=== PATIENT | female | born 1990 | race Caucasian/White ===

== ENCOUNTER 2019-02-01 13:55 | Inpatient (IN) ==
[2019-02-01] MEDS ORDERED: OXYTOCIN 30 UNITS/500 ML BAG IV PRN ×3 (14:09→21:24)
[2019-02-01] MEDS: LACTATED RINGER'S 1,000 ML IV PRN ×3 (14:15→16:27)
[2019-02-01 14:33] LABS: Hematocrit (blood only) 37.6 % (37-47); Hemoglobin 13.1 g/dL (12.0-16.0); Mean Corpuscular Hemoglobin 31.1 pg (25-34); Mean Corpuscular Volume 89.3 fL (80-100); Mean Platelet Volume 12.2 fL (7.4-10.4); Platelet Count 136 K/uL (130-400); RDW Coefficient of Variation 13.7 % (11.5-14.5); RDW Standard Deviation 44.6 fL (36.4-46.3); Red Blood Count 4.21 M/uL (4.2-5.4); White Blood Count 12.52 K/uL (4.8-10.8)
[2019-02-01 15:09] LABS: Mean Corpuscular Hgb Conc 34.8 g/dL (32-36)
[2019-02-01] MEDS ORDERED: BUPIVACAINE 0.25% 30 ML VIAL ONE (15:55)
[2019-02-01] MEDS ORDERED: ePHEDrine sulfate 50 MG/ML AMP ONE (15:55)
[2019-02-01] MEDS ORDERED: fentaNYL 2MCG/ML ROPIV 1.25MG/ML 100 ML BAG EPI ONE (15:56)
--- NOTE | 2019-02-01 16:07 | Anesthesiology Consultation ---
Date of Service February 01, 2019 Assessment & Plan (1) Encounter for pre-operative examination: Chart Review Chart Review: Patient NOT seen in Pre Admission Testing and Acceptable Risk for Labor Epidural Consults Requested none ASA ASA2 Proposed Anesthesia Anesthesia Type: Labor Epidural Risk / Benefits Reviewed With: PT / POA / Parent / Guardian, Accepts Plan and Informed Consent Obtained History Height/Weight Height: 5 ft 2 in Weight: 75.098 kg Allergies Allergy/AdvReac Type Severity Reaction Status Date / Time No Known Allergies Allergy Verified 01/31/19 13:41 Medications Home Medications Medication Instructions Recorded Confirmed Last Taken ondansetron HCl 4 mg tablet 1 PO .TAKE 1 TABLET Every #20 tab 10/31/18 01/31/19 Unknown 1 tab PO DAILY 10/31/18 01/31/19 Unknown vitamin,calcium,tszxqfau-bfxx-yfdif acid tablet calcium carbonate-vitamin D3 PO 11/07/18 01/31/19 Unknown Active Medications Generic Name Dose Route Start Last Admin Trade Name Freq PRN Reason Stop Dose Admin Lactated Ringer's 1,000 mls @ 125 mls/hr 02/01/19 14:09 02/01/19 16:27 Lr IV 02/03/19 14:08 999 mls/hr .Q8H PRN Administration L&D Protocol Protocol Oxytocin 30 units in 500 mls @ 1 mls/hr 02/01/19 14:09 02/01/19 15:09 Pitocin IV 02/03/19 14:08 0.06 units/hr .Q24H PRN 1 mls/hr Labor Induction/Augmentation Administration Protocol 0.06 UNITS/HR NPO Date Last Intake of Fluids: 02/01/19 Time Last Intake of Fluids: 16:02 Date Last Intake of Solids: 01/31/19 Time Last Intake of Solids: 06:00 Past Medical History Medical History History of chicken pox History of hip fracture Exercise / Class Metabolic Activity II 4-5 Yardwork/Stairs/Walk up hill Negative for chest pain or shortness of breath. Past Family History Family History Other No pertinent family history Past Anesthesia History No Family Hx of Anesthesia Complications Pt with a personal history of PDPH with last epidural - no blood patch History of PONV No Hx of Motion Sickness Social History Smoking Status: Never smoker Do You Dip or Chew Tobacco: No Hx Alcohol Use: No Hx Substance Use: No Review of Systems Patient denies history of abnormal bleeding or bleeding disorder. Patient denies active use of anticoagulants other than low dose aspirin. Patient denies numbness, tingling or weakness in lower extremities. Physical Exam Vital Signs Last Vital Signs Temp 36.8 C 02/01/19 15:21 Pulse 85 02/01/19 16:45 Resp 20 02/01/19 15:21 BP 103/56 L 02/01/19 16:43 Pulse Ox 99 02/01/19 16:45 Constitutional not obese (Gravid uterus) ENMT Mouth: no TMJ abnormality and oral opening not small Thyromental Distance: > or= 3.5 Finger Breadths Mallampati Class: III Neck normal visual inspection; neck extension not limited Respiratory normal respiratory effort Auscultation: lungs clear to auscultation bilaterally Cardiovascular Rate/Rhythm: regular rate and regular rhythm Heart Sounds: no murmur Neurologic moves all extremities Motor/Sensory: no sensory deficit Psychiatric Orientation: alert and oriented x 3 Testing Laboratory Results 02/01/19 14:17
[2019-02-01] MEDS: fentaNYL citrate 100 MCG/2 ML VIAL ONE ×2 (16:29→16:32)
[2019-02-01] MEDS ORDERED: ONDANSETRON INJ 2 MG/ML 2 ML VIAL IV PRN (16:43)
[2019-02-01] MEDS ORDERED: ePHEDrine sulfate 50 MG/ML AMP IV PRN (16:43)
[2019-02-01] MEDS ORDERED: NALOXONE HCL 1 MG in SODIUM CHLORIDE 0.9% 1000ML 1,000 ML IV PRN (16:43)
[2019-02-01] MEDS ORDERED: fentaNYL 2MCG/ML ROPIV 1.25MG/ML 100 ML BAG EPI PRN (16:43)
[2019-02-01] MEDS ORDERED: DiphenhydrAMINE HCL 50 MG/ML VIAL IV PRN (16:43)
[2019-02-01] MEDS ORDERED: NALOXONE HCL 0.4 MG/1 ML VIAL/CARP IV PRN (16:43)
[2019-02-01] MEDS ORDERED: NALBUPHINE HCL INJ 10 MG/ML AMP IV PRN (16:43)
--- NOTE | 2019-02-01 20:31 | Delivery Summary ---
Vaginal Delivery Summary Date of Service February 01, 2019 Vaginal Delivery Summary DIAGNOSES: 1. Leon intrauterine at 40w4d gestation. 2. Planned IOL; however patient admitted in early labor, then augmented. 3. Group B Streptococcus Neg. PROCEDURE: Spontaneous vaginal delivery without laceration. SURGEON: Marianne Cortez MD. PIPE INSPECTOR: None. ESTIMATED BLOOD LOSS: 500 mL. COMPLICATIONS: None. PLACENTA: Spontaneous and intact with a 3-vessel cord. DISPOSITION: Stable to labor and delivery. DESCRIPTION: The patient pushed well and brought the head to in OA position. The infant's head was allowed to deliver with contraction force and no further active pushing, with the perineum protected during this time. The shoulders delivered easily with a maternal pushing effort. There was no nuchal cord. The shoulders and body delivered without any difficulty, and the infant was placed on the maternal abdomen. It was vigorous and moving all extremities, and making respiratory efforts. The cord was doubly clamped by the MD and then cut by the FOB. The placenta delivered spontaneously and was noted to be intact and with a 3VC. The cervix, vagina and perineum were examined and were found to be without defect requiring repair. The fundus was firm and lochia minimal immediately after delivery.
--- NOTE | 2019-02-01 21:00 | Anesthesia Procedure Note ---
Date of Service February 01, 2019 Anesthesia Post Epidural Note Vital Signs Vital Signs: Temp Pulse Resp BP Pulse Ox 37.5 C 95 H 18 122/57 L 95 02/01/19 19:15 02/01/19 20:56 02/01/19 20:41 02/01/19 20:56 02/01/19 20:25 Pain Intensity Abdomen: Pain Intensity: 0 Notes Mental Status: alert / awake / arousable and participated in evaluation Nausea / Vomiting: adequately controlled Pain: adequately controlled Airway Patency, RR, SpO2: stable & adequate BP & HR: stable & adequate Hydration State: stable & adequate Neuraxial Anesthesia: was administered and sensory block is resolving Anesthetic Complications: no major complications apparent and Pt Satisfied with anesthetic care Epidural: Removed without complications and With tip intact Notes: Epidural site clean, dry and intact. No signs of edema, erythema or bruising at insertion site. Pt instructed to request anesthesia if she has residual lower extremity numbness or if she develops lower extremity pain or weakness, back pain or headache.
[2019-02-01] MEDS ORDERED: DIPHTHERIA/TETANUS/PERTUSSIS 0.5 ML SYR/VIAL IM ONE (21:24)
[2019-02-01] MEDS ORDERED: SUPERCREAM 0.870% 15 GM JAR EXT PRN (21:24)
[2019-02-01] MEDS ORDERED: OXYCODONE/ACETAMINOPHEN 5mg/325mg TAB PO PRN (21:24)
[2019-02-01] MEDS ORDERED: ACETAMINOPHEN 325 MG TAB PO PRN (21:24)
[2019-02-01] MEDS ORDERED: HYDROCORTISONE ACETATE 25 MG SUPP PR PRN (21:24)
[2019-02-01] MEDS ORDERED: LACTATED RINGER'S 1,000 ML IV SCH (21:24)
[2019-02-01] MEDS ORDERED: IBUPROFEN 600 MG TAB PO PRN (21:24)
[2019-02-01] MEDS ORDERED: BENZOCAINE 20% AER SPR 82.5 GM CAN EXT PRN (21:24)
--- NOTE | 2019-02-02 07:25 | Obstetrical Progress Note ---
Date of Service <Reena Peters MD - Last Filed: 02/02/19 07:25> February 02, 2019 Assessment & Plan <Reena Peters MD - Last Filed: 02/02/19 07:25> (1) Encounter for care and examination after delivery: 28 yo F PPD0 s/p on 02/01 Doing extremely well this AM. TOlerating regular diet. Pain well controlled. Has no issues with bowel or bladder. Still having occassional cramping pains. Progressing appropriately towards discharge. Day #:: 1 Subjective <Reena Peters MD - Last Filed: 02/02/19 07:25> Ambulation: ambulating normally Voiding: no voiding problems Passing Gas:: Yes Diet Tolerance:: regular diet Lochia:: Small Feeding Type:: breast feeding Current Pain Level(1-10): 1 Constitutional: + fatigue; no fever and no chills Respiratory: no cough and no dyspnea No shortness of breath Cardiovascular: + edema; no chest pain, no syncope and no calf pain Breast: no breast pain Gastrointestinal: + cramping; no abdominal pain, no nausea, no vomiting, no constipation and no diarrhea/loose stools Genitourinary (female): no dysuria and no difficulty urinating Neurologic: no headache(s) Physical Exam <Reena Peters MD - Last Filed: 02/02/19 07:25> Constitutional well developed and well nourished Respiratory normal respiratory effort; no respiratory distress, no labored breathing and no cough Auscultation: no crackles, no rales, no rhonchi and no wheezes Cardiovascular Rate/Rhythm: regular rate and regular rhythm Heart Sounds: no gallop, no murmur and no cardiac rub Extremities: + pedal edema Gastrointestinal (Abdomen) Inspection/Auscultation: + abdomen distended and normal bowel sounds Percussion/Palpation: + abdomen tender and abdomen soft; no guarding Genitourinary Uterus firm, palpable at umbilicus, no tenderness to palpation. Results & Data <Reena Peters MD - Last Filed: 02/02/19 07:25> Vital Signs (Past 12 Hours) Vital Signs Temp Pulse Pulse Resp BP BP Pulse Ox 02/02/19 04:00 36.7 C 82 18 121/77 02/01/19 23:30 36.9 C 87 18 118/73 02/01/19 22:38 85 114/60 02/01/19 22:35 18 02/01/19 22:25 87 119/66 02/01/19 22:11 83 118/68 02/01/19 21:56 78 126/75 02/01/19 21:52 18 02/01/19 21:41 86 111/66 02/01/19 21:37 18 02/01/19 21:26 78 18 120/73 02/01/19 21:12 86 122/71 02/01/19 21:11 18 02/01/19 20:56 95 H 18 122/57 L 02/01/19 20:41 96 H 18 123/62 02/01/19 20:25 109 H 18 109/59 L 95 02/01/19 20:20 117 H 96 02/01/19 20:15 87 98 02/01/19 20:10 81 112/60 97 02/01/19 20:05 78 95 02/01/19 20:00 85 96 02/01/19 19:57 84 111/60 02/01/19 19:55 93 H 96 02/01/19 19:50 93 H 96 02/01/19 19:45 88 96 02/01/19 19:42 82 104/61 02/01/19 19:40 88 97 02/01/19 19:35 85 97 02/01/19 19:30 86 97 02/01/19 19:26 81 110/62 02/01/19 19:25 80 98 <Marianne Cortez MD - Last Filed: 02/02/19 07:26> Co-Signing Physician Notes I have reviewed the resident's note and examined the patient myself, and agree with the note above. Resident Activity Tracking <Reena Peters MD - Last Filed: 02/02/19 07:25> Resident Involvement: Resident Care Provided Care Provided: OB Delivery
[2019-02-02 07:57] LABS: Hematocrit (blood only) 30.9 % (37-47); Mean Corpuscular Hgb Conc 35.6 g/dL (32-36); Mean Platelet Volume 11.9 fL (7.4-10.4); Platelet Count 136 K/uL (130-400); RDW Coefficient of Variation 13.3 % (11.5-14.5); RDW Standard Deviation 42.5 fL (36.4-46.3); Red Blood Count 3.55 M/uL (4.2-5.4); White Blood Count 14.16 K/uL (4.8-10.8)
[2019-02-02] MEDS ORDERED: PRENATAL VITAMIN 1 TAB PO SCH (08:00)
[2019-02-02] MEDS: DOCUSATE SODIUM 100 MG CAP PO SCH ×2 (08:19→21:59)
[2019-02-02 12:47] VITALS: O2SAT 98
[2019-02-02 17:20] VITALS: TEMP 98.1
[2019-02-02 21:32] VITALS: BP 104/69; PULSE 102
== END 2019-02-02 23:00 | disposition home or self-care (01) | DRG 807 ==
LOC: OPB 13:55 → 4S1 13:58 → 4S2 23:56